=== PATIENT | male | born 1940 | race Caucasian/White ===

== ENCOUNTER → 2018-11-15 | Outpatient (REF) | payer MEDICARE | LOC: M LAB REF 13:40 | PROVIDERS: ATTEND Podiatrist Foot & Ankle Surgery | DX: L82.1 Other seborrheic keratosis (principal) ==

== ENCOUNTER → 2019-01-23 | Outpatient (REF) | payer MEDICARE ==
[2019-01-23 18:00] LABS: FOLATE 20.1 NG/ML; PTH INTACT 112.1 PG/ML (18.5-88.0)
== END ==
LOC: M LAB REF 16:42
PROVIDERS: ATTEND Internal Medicine
DX: N18.3 Chronic kidney disease, stage 3 (moderate) (principal)

== ENCOUNTER → 2021-01-28 | Outpatient (CLI) | payer MEDICARE ==
--- NOTE | 2021-01-28 13:51 | REP ---
INDICATION: INCREASED CREATNINE, SINGLE KIDNEY COMPARISON: None TECHNIQUE: Real time polanco scale ultrasound examination using curved array transducer. 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 Left kidney is normal in contour, size, echogenicity, and reniform shape without hydronephrosis, nephrolithiasis, cystic or renal mass lesion. Kidney measures 12.8 x 4.6 x 6.1 cm with suggestions for normal column of K[place]. Bladder is partially collapsed and normal. IMPRESSION: 1. Normal left kidney. <Electronically signed by Abelino Sanchez > 01/28/21 [id number]
== END ==
LOC: M RAD 13:14
PROVIDERS: ATTEND Internal Medicine
DX: N18.32 Chronic kidney disease, stage 3b (principal); Z90.5 Acquired absence of kidney

== ENCOUNTER 2021-06-12 22:27 | Inpatient (IN) | payer MEDICARE ==
[~2021-06-12] VITALS: Ht 190.5 cm; Wt 101.8 kg
[2021-06-12] MEDS ORDERED: NS 500 ML IV ONE (22:50)
[2021-06-12] MEDS ORDERED: ACETAMINOPHEN 500 MG TAB PO ONE (22:50)
[2021-06-12 22:59] LABS: HEMATOCRIT 38.7 % (42.0-52.0); HEMOGLOBIN 12.5 g/dl (13.5-17.5); LYMPH # 0.9 10^3/uL (1.5-5.0); MEAN CORPUSCULAR HEMOGLOBIN 31.1 pg (27.0-33.0); MEAN CORPUSCULAR HGB CONC 32.3 g/dl (32.0-36.5); MEAN CORPUSCULAR VOLUME 96.3 fl (80.0-96.0); MONO # 0.5 10^3/uL (0.0-0.8); MONO % 7.1 % (2.0-8.0); NEUTROPHILS # 6.1 10^3/uL (1.5-8.5); NEUTROPHILS % 80.4 % (36.0-66.0); PLATELET COUNT, AUTOMATED 191 10^3/uL (150-450); RED BLOOD COUNT 4.02 10^6/uL (4.30-6.10); WHITE BLOOD COUNT 7.6 10^3/uL (4.0-10.0)
[2021-06-12 23:18] LABS: ABG BASE EXCESS -6.7 (-2.0-2.0); ABG HCO3 16.1 MEQ/L (22.0-26.0); ABG O2 SATURATION 98.6 % (95.0-99.0); ABG PARTIAL PRESSURE CO2 25.2 mmHg (35.0-45.0); ABG PARTIAL PRESSURE O2 116.3 mmHg (75.0-100.0); ABG TOTAL CO2 16.8 MEQ/L (23.0-31.0); ABG pH (ARTERIAL) 7.422 UNITS (7.350-7.450)
[2021-06-12 23:32] LABS: ALBUMIN 3.1 GM/DL (3.2-5.2); BILIRUBIN,DIRECT 0.2 MG/DL (0.0-0.2); BILIRUBIN,TOTAL 0.5 MG/DL (0.2-1.0); CALCIUM LEVEL 8.1 MG/DL (8.8-10.2); CK-MB VALUE MASS 1.3 NG/ML (<3.6); CREATININE FOR GFR 2.55 MG/DL (0.70-1.30); MB/CK RELATIVE INDEX 1.59 (< OR =4); POTASSIUM SERUM 4.7 MEQ/L (3.5-5.1); TOTAL PROTEIN 6.5 GM/DL (6.4-8.2)
[2021-06-13] MEDS ORDERED: BENZONATATE 100MG CAPSULE PO PRN (01:10)
[2021-06-13] MEDS ORDERED: ACETAMINOPHEN TAB 650MG DOSE (2X325MG) PO PRN (01:10)
[2021-06-13] MEDS ORDERED: NS 1,000 ML IV ONE (01:10)
[2021-06-13] MEDS ORDERED: ALEND (01:28)
[2021-06-13] MEDS ORDERED: CALCCAP4 PO ×2 (01:28)
[2021-06-13] MEDS ORDERED: HOME MED LIST COMPLETE! XX SCH (01:30)
[2021-06-13 01:40] LABS: CK-MB VALUE MASS 1.6 NG/ML (<3.6); MB/CK RELATIVE INDEX 1.9 (< OR =4)
[2021-06-13 01:54] LABS: INR 1.04
[2021-06-13 01:55] LABS: PARTIAL THROMBOPLASTIN TIME 35.7 SECONDS (25.9-37.0)
[2021-06-13] MEDS: NS 1,000 ML IV SCH ×2 (02:00→08:09)
[2021-06-13 02:30] VITALS: BP 125/60
[2021-06-13] MEDS ORDERED: REMDESIVIR 200 MG in NS 250 ML IV ONE (03:00)
[2021-06-13] MEDS ORDERED: SODIUM CHLORIDE 0.9% INJ 10 ML SYR IV ONE (05:00)
[2021-06-13] MEDS: ENOXAPARIN 30MG/0.3ML SYRINGE (J1650 PER 10MG) SC SCH (08:10)
[2021-06-13] MEDS: BARICITINIB 2MG TABLET (OLUMIANT) FOR EUA PO SCH (08:10)
[2021-06-13] MEDS: guaiFENesin ER 600 MG TAB PO SCH ×2 (08:10→20:23)
[2021-06-13] MEDS: dexameTHASONE 4 MG/ML 1ML VIAL (J1100 PER 1MG) IV SCH (08:10)
[2021-06-13 08:48] LABS: BASO % 0.1 % (0.0-1.0); HEMATOCRIT 35.3 % (42.0-52.0); HEMOGLOBIN 11.2 g/dl (13.5-17.5); LYMPH # 1.5 10^3/uL (1.5-5.0); LYMPH % 22.2 % (24.0-44.0); MEAN CORPUSCULAR HEMOGLOBIN 30.7 pg (27.0-33.0); MEAN CORPUSCULAR HGB CONC 31.7 g/dl (32.0-36.5); MEAN CORPUSCULAR VOLUME 96.7 fl (80.0-96.0); MONO # 0.7 10^3/uL (0.0-0.8); MONO % 9.9 % (2.0-8.0); NEUTROPHILS # 4.5 10^3/uL (1.5-8.5); NEUTROPHILS % 67.4 % (36.0-66.0); PLATELET COUNT, AUTOMATED 181 10^3/uL (150-450); RED BLOOD COUNT 3.65 10^6/uL (4.30-6.10); WHITE BLOOD COUNT 6.8 10^3/uL (4.0-10.0)
[2021-06-13 09:19] LABS: ALBUMIN 2.7 GM/DL (3.2-5.2); BILIRUBIN,TOTAL 0.4 MG/DL (0.2-1.0); CALCIUM LEVEL 7.7 MG/DL (8.8-10.2); CREATININE FOR GFR 2.02 MG/DL (0.70-1.30); MAGNESIUM LEVEL 2.3 MG/DL (1.8-2.4); POTASSIUM SERUM 4.9 MEQ/L (3.5-5.1); TOTAL PROTEIN 5.6 GM/DL (6.4-8.2)
[2021-06-13 09:20] LABS: CK-MB VALUE MASS 2.5 NG/ML (<3.6); MB/CK RELATIVE INDEX 2.5 (< OR =4)
[2021-06-13] MEDS ORDERED: cefTRIAXone SOD 1 GM in D5W MINI-BAG PLUS 50 ML IV SCH (12:00)
[2021-06-13] MEDS: DOXYCYCLINE HYCLATE 100 MG in D5W MINI-BAG PLUS 100 ML IV SCH (13:02)
[2021-06-13 14:00] VITALS: BP 115/53
[2021-06-13 20:00] VITALS: BP 106/59; O2SAT 98
[2021-06-13 23:39] LABS: APPEARANCE, URINE HAZY (CLEAR); BACTERIA, URINE AUTO NEGATIVE (NEGATIVE); BILIRUBIN, URINE AUTO NEGATIVE (NEGATIVE); BLOOD, URINE BLOOD 1+ (NEGATIVE); COLOR, URINE YELLOW (YELLOW); GLUCOSE, URINE (UA) AUTO NEGATIVE (NEGATIVE); KETONE, URINE AUTO NEGATIVE (NEGATIVE); LEUKOCYTE ESTERASE, URINE AUTO NEGATIVE (NEGATIVE); NITRITE, URINE AUTO NEGATIVE (NEGATIVE); PROTEIN, URINE AUTO 1+ mg/dL (NEGATIVE); RBC, URINE AUTO 11 /HPF (0-3); SPECIFIC GRAVITY URINE AUTO 1.015 (1.002-1.035); SQUAMOUS EPITHELIAL CELL UR AU 0 /HPF (0-6); UROBILINOGEN, URINE AUTO 0.2 mg/dL (0.0-2.0); WBC, URINE AUTO 5 /HPF (0-3)
[2021-06-13 23:57] LABS: CREATININE,RANDOM URINE 83.3 MG/DL; TOTAL PROTEIN,RANDOM URINE 71.7 MG/DL (0.0-12.0)
[2021-06-14] MEDS: DOXYCYCLINE HYCLATE 100 MG in D5W MINI-BAG PLUS 100 ML IV SCH (00:21)
[2021-06-14 04:00] VITALS: O2SAT 97
[2021-06-14] MEDS ORDERED: REMDESIVIR 100 MG in NS 250 ML IV SCH (04:00)
[2021-06-14 04:14] VITALS: BP 122/58
[2021-06-14] MEDS ORDERED: SODIUM CHLORIDE 0.9% INJ 10 ML SYR IV SCH (05:00)
[2021-06-14 06:34] LABS: HEMATOCRIT 34.4 % (42.0-52.0); HEMOGLOBIN 11.2 g/dl (13.5-17.5); LYMPH % 23.3 % (24.0-44.0); MEAN CORPUSCULAR HEMOGLOBIN 31.1 pg (27.0-33.0); MEAN CORPUSCULAR HGB CONC 32.6 g/dl (32.0-36.5); MEAN CORPUSCULAR VOLUME 95.6 fl (80.0-96.0); MONO # 0.4 10^3/uL (0.0-0.8); MONO % 9.4 % (2.0-8.0); NEUTROPHILS # 2.9 10^3/uL (1.5-8.5); NEUTROPHILS % 66.8 % (36.0-66.0); PLATELET COUNT, AUTOMATED 195 10^3/uL (150-450); WHITE BLOOD COUNT 4.3 10^3/uL (4.0-10.0)
[2021-06-14 06:56] LABS: CALCIUM LEVEL 7.8 MG/DL (8.8-10.2); CREATININE FOR GFR 1.52 MG/DL (0.70-1.30); GLOMERULAR FILTRATION RATE 47.2 (>35); MAGNESIUM LEVEL 2.2 MG/DL (1.8-2.4); POTASSIUM SERUM 5.1 MEQ/L (3.5-5.1)
[2021-06-14] MEDS: ENOXAPARIN 30MG/0.3ML SYRINGE (J1650 PER 10MG) SC SCH (08:57)
[2021-06-14] MEDS: BARICITINIB 2MG TABLET (OLUMIANT) FOR EUA PO SCH (08:57)
[2021-06-14] MEDS: dexameTHASONE 4 MG/ML 1ML VIAL (J1100 PER 1MG) IV SCH (08:57)
[2021-06-14] MEDS: guaiFENesin ER 600 MG TAB PO SCH (08:57)
[2021-06-14 09:48] VITALS: O2SAT 98
[2021-06-14] MEDS ORDERED: PRED10TA2 PO (09:58)
[2021-06-14] MEDS ORDERED: AMOX875T2 PO (09:58)
[2021-06-14] MEDS ORDERED: PROAAER10 INH (09:58)
[2021-06-14] MEDS ORDERED: DOXY-350 PO (09:58)
[2021-06-14] MEDS ORDERED: ACET1TAB55 PO (09:58)
[2021-06-14] MEDS ORDERED: MUCI600T31 PO (09:58)
== END 2021-06-14 11:50 | disposition home or self-care (01) | DRG 178 ==
LOC: M ED 22:27 → M ED INP 06-13 01:07 → M 4MAIN 06-13 02:30
PROVIDERS: ADMIT Family Medicine; ATTEND Family Medicine
PROC: XW033E5 Introduction of Remdesivir Anti-infective into Peripheral Vein, Percutaneous Approach, New Technology Group 5 (ICD-10-PCS; principal; 2021-06-13)
PROC: 3E0333Z Introduction of Anti-inflammatory into Peripheral Vein, Percutaneous Approach (ICD-10-PCS; 2021-06-13)
DX: U07.1 COVID-19 (principal); N17.9 Acute kidney failure, unspecified; N18.30 Chronic kidney disease, stage 3 unspecified; R09.02 Hypoxemia; Z87.891 Personal history of nicotine dependence; Z90.5 Acquired absence of kidney

== ENCOUNTER → 2021-06-28 | Outpatient (CLI) | payer MEDICARE ==
[~2021-06-28] MED LIST: ACET1TAB55 PO; ALEND; AMOX875T2 PO; CALCCAP4 PO; DOXY-350 PO; MUCI600T31 PO; PRED10TA2 PO; PROAAER10 INH
== END ==
LOC: M WUC 09:12
PROVIDERS: ATTEND Internal Medicine
DX: J12.82 Pneumonia due to coronavirus disease 2019 (principal)

== ENCOUNTER → 2021-07-02 | Outpatient (CLI) | payer MEDICARE | LOC: M SLEEP 20:00 | PROVIDERS: ATTEND Physician Assistant | DX: R06.83 Snoring (principal) ==

== ENCOUNTER → 2022-10-05 | Outpatient (REF) | payer MEDICARE ==
[~2022-10-05] MED LIST changes: -DOXY-350 PO; +DOXY-444 PO
[2022-10-05 17:20] LABS: URIC ACID 6.7 MG/DL (3.7-9.2)
[2022-10-05 17:23] LABS: PHOSPHORUS LEVEL 3.5 MG/DL (2.4-5.1); PTH INTACT 80.2 PG/ML (18.5-88.0)
== END ==
LOC: M LAB REF 16:18
PROVIDERS: ATTEND Internal Medicine
DX: N18.32 Chronic kidney disease, stage 3b (principal)

== ENCOUNTER → 2025-01-20 | Outpatient (REF) | payer MEDICARE ==
[~2025-01-20] MED LIST changes: +DOXY-440 PO; -DOXY-444 PO
[2025-01-20 18:08] LABS: PHOSPHORUS LEVEL 3.1 MG/DL (2.4-5.1); PTH INTACT 100.7 PG/ML (18.5-88.0)
== END ==
LOC: M LAB REF 17:15
PROVIDERS: ATTEND Internal Medicine
DX: N18.32 Chronic kidney disease, stage 3b (principal)